=== PATIENT | female | born 1950 | race Two or more races ===

== ENCOUNTER 2018-06-09 13:08 | Day surgery (SDC) | payer OTHER ==
[2018-06-09] MEDS ORDERED: MIDAZOLAM 1 MG/ML 2 ML INJ ×4 (17:35)
[2018-06-09] MEDS ORDERED: FENTAnyl 50 MCG/ML VIAL (17:35)
== END 2018-06-09 18:05 | disposition home or self-care (01) ==
LOC: GIL 13:08
DX: Z12.11 Encounter for screening for malignant neoplasm of colon (principal)
CPT/HCPCS: 45378